=== PATIENT | male | born 1935 | race Hispanic/Latino ===

== ENCOUNTER 2019-01-07 08:19 | Observation (INO) | payer OTHER ==
[2019-01-06 16:09] LABS: APPEARANCE,URINE Clear (CLEAR); BILIRUBIN,URINE Negative (NEGATIVE); COLOR,URINE Yellow (YELLOW); GLUCOSE, URINE (UA) Negative (NEGATIVE); KETONES,URINE Negative (NEGATIVE); LEUKOCYTE ESTERASE ,URINE Trace (NEGATIVE); NITRATE,URINE Negative (NEGATIVE); OCCULT BLOOD,URINE Negative (NEGATIVE); PROTEIN,URINE Negative (NEGATIVE); UROBILINOGEN,URINE 0.2 mg/dL (0.2-1.0)
[2019-01-06 16:13] VITALS: BP 149/73
[2019-01-06 16:17] LABS: CREATININE 1.6 mg/dL (0.5-1.5); POTASSIUM 5.5 mmol/L (3.5-5.1)
[2019-01-06 16:22] LABS: INR 0.97 (0.85-1.15); PROTHROMBIN TIME 10.2 SEC (9.6-11.6)
[2019-01-06 16:49] LABS: BACTERIA,URINE Few /HPF (None Seen); RBC,URINE 0-1 /HPF (0-1); SQUAMOUS EPITHELIAL CELL,UR Few /HPF (0-2)
--- NOTE | 2019-01-06 18:10 | NUR ---
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
--- NOTE | 2019-01-06 18:16 | NUR ---
called lab and spoke to narcisa, advisedof new urine cx order.
[2019-01-07] VITALS (19 sets, daily range): BP systolic 105–133; BP diastolic 54–67
[~2019-01-07] VITALS: Ht 175.3 cm; Wt 108.9 kg
[~2019-01-07 08:19] MED LIST: AMLO10TA7 PO; DORZ1DRO7 OU; LATA7.5D OU; LISI1TAB28 PO; METF-444 PO; OMEP-50 PO; SIMV-46 PO
[2019-01-07] MEDS ORDERED: LEVOFLOXACIN 500 MG/D5W 100 ML 100 ML IV SCH (08:30)
[2019-01-07] MEDS ORDERED: SODIUM CHLORIDE 0.9% 1000ML 1,000 ML IV ONE (09:43)
[2019-01-07] MEDS: CEFAZOLIN SODIUM 1 GM VIAL IVP SCH ×3 (10:00→20:49)
[2019-01-07] MEDS ORDERED: ACETAMINOPHEN EXTRA STRENGTH 500 MG TABLET ONE (10:24)
[2019-01-07] MEDS ORDERED: CELECOXIB 200 MG CAP ONE (10:24)
--- NOTE | 2019-01-07 10:34 | NUR ---
POTENTIAL FOR INFECTION: SHAVED RIGHT KNEE / LEG PER ROSEANNE FERNANDEZ, FOLLOWED BY WIPING WITH MAZIN: 2% CHLORHEXIDINE GLUCONATE CLOTH PATIENTS PRE-OP SKIN PREP.
[2019-01-07] MEDS ORDERED: CEFAZOLIN SODIUM 1 GM VIAL ONE (10:58)
[2019-01-07] MEDS ORDERED: TRANEXAMIC ACID 1000MG/10ML ONE ×2 (10:58)
[2019-01-07] MEDS ORDERED: LIDOCAINE PF 2% 5ML ABBOJECT ONE (11:58)
[2019-01-07] MEDS ORDERED: FENTANYL CITRATE PF 50 MCG/1 ML 5ML AMP IV ONE ×2 (11:59→13:13)
[2019-01-07] MEDS ORDERED: ROCURONIUM 10MG/1ML SYR 10 MG/ML ML ONE ×2 (11:59→13:27)
[2019-01-07] MEDS ORDERED: PROPOFOL 10 MG/ML 20ML VIAL IV ONE (11:59)
[2019-01-07] MEDS ORDERED: ROPIVACAINE 0.5% 5MG/ML 30ML IJ ONE (12:05)
[2019-01-07] MEDS ORDERED: EPHEDRINE SULFATE 50 MG/ML AMPULE ONE ×2 (12:20→14:00)
[2019-01-07] MEDS ORDERED: GLYCOPYRROLATE 1 MG/5 ML SYRINGE ONE (13:13)
[2019-01-07] MEDS ORDERED: NEOSTIGMINE 5MG/5ML SYR IV ONE (13:13)
[2019-01-07] MEDS ORDERED: ONDANSETRON HCL 4 MG/2 ML VIAL ONE (13:14)
[2019-01-07] MEDS ORDERED: DEXAMETHASONE SOD PHOSPHATE 10MG/ML 1ML VIAL ONE (13:14)
[2019-01-07] MEDS ORDERED: DiphenhydrAMINE HCL 50 MG/ML VIAL IVP PRN (14:30)
[2019-01-07] MEDS ORDERED: ONDANSETRON HCL 4 MG/2 ML VIAL IVP PRN (14:30)
[2019-01-07] MEDS ORDERED: POTASSIUM CHLORIDE 10% ELIXIR 20 MEQ/15 ML UDCUP PO PRN (14:30)
[2019-01-07] MEDS ORDERED: TEMAZEPAM 15 MG CAPSULE PO PRN (14:30)
[2019-01-07] MEDS ORDERED: OXYCODONE HCL 5 MG TAB PO PRN (14:30)
[2019-01-07] MEDS ORDERED: POTASSIUM CHLORIDE 20MEQ/100ML 100 ML IV PRN (14:30)
[2019-01-07] MEDS: SODIUM CHLORIDE 0.9% 1000ML 1,000 ML IV SCH ×3 (14:30→19:20)
[2019-01-07] MEDS ORDERED: CALCIUM CARBONATE 500 MG TABLET PO PRN (14:30)
[2019-01-07] MEDS ORDERED: POTASSIUM CHLORIDE 20 MEQ ERTAB PO PRN (14:30)
[2019-01-07] MEDS ORDERED: FERROUS FUMARATE 324 MG TABLET PO PRN (14:30)
[2019-01-07] MEDS ORDERED: TRAMADOL HCL 50 MG TABLET PO PRN (14:30)
[2019-01-07] MEDS ORDERED: LIDOCAINE HCL-MPF 1% 2ML VIAL IV PRN (14:30)
[2019-01-07] MEDS: ACETAMINOPHEN EXTRA STRENGTH 500 MG TABLET PO SCH ×2 (14:30→20:50)
--- NOTE | 2019-01-07 15:25 | NUR ---
TRANEXAMIC ACID 1GM IVPB GIVEN IN PACU. Addendum: 01/07/19 at 1526 by RACHEL MOORE RN RN Amended: Links added.
[2019-01-07] MEDS: INSULIN HUMULIN R 100 UNIT/ML 3ML SQ SCH ×2 (16:30→20:51)
--- NOTE | 2019-01-07 17:03 | NUR ---
DCP CM met with pt discussed dc plans. Pt is independent prior to surgery, lives at home with spouse. Pt has a shower chair. Denies any other equipments/services. Feels safe to go back home, spouse able to assist with transportation and needs as necessary. Pt agreeable for short term rehab, spouse sign [facility] for [facility]. Faxed order, clinicals, PAS[facility], confirmation received. DC plan to SNF. CM to cont to follow up. Addendum: 01/07/19 at 1707 by MELE DOWLING LVN CM Amended: Links added.
[2019-01-07] MEDS: METFORMIN HCL 500 MG TAB.SR.24H PO SCH (20:49)
[2019-01-07] MEDS: SIMVASTATIN 20 MG TABLET PO SCH (20:49)
[2019-01-07] MEDS: PREGABALIN 25 MG CAP PO SCH (20:49)
[2019-01-07] MEDS: ASPIRIN 81MG TAB.CHEW PO SCH (20:49)
[2019-01-07] MEDS: CELECOXIB 200 MG CAP PO SCH (20:50)
[2019-01-07] MEDS: TIMOLOL OU SCH (20:59)
[2019-01-07] MEDS: HYDROCHLOROTHIAZIDE PO SCH (20:59)
[2019-01-07] MEDS: DORZOLAMIDE OU SCH (20:59)
[2019-01-07] MEDS: LATANOPROST 2.5 ML DROPS OU SCH (20:59)
[2019-01-07] MEDS: LISINOPRIL PO SCH (20:59)
[2019-01-08] MEDS: CEFAZOLIN SODIUM 1 GM VIAL IVP SCH (03:02)
[2019-01-08] MEDS: SODIUM CHLORIDE 0.9% 1000ML 1,000 ML IV SCH (03:03)
[2019-01-08 04:22] VITALS: BP 124/64
[2019-01-08 04:27] LABS: HEMATOCRIT 35.3 % (42-54); MEAN CORPUSCULAR HEMOGLOBIN 29.6 pg (27.0-33.0); MEAN CORPUSCULAR HGB CONC 34.2 g/dL (32.0-36.0); MEAN CORPUSCULAR VOLUME 86.6 fL (79-99); PLATELET COUNT (AUTO) 230 K/uL (130-400); RED BLOOD CELL COUNT(AUTO) 4.07 MIL/uL (4.50-6.20); WHITE BLOOD COUNT (AUTO) 12.3 K/uL (4.8-10.8)
[2019-01-08 04:42] LABS: CREATININE 1.6 mg/dL (0.5-1.5); POTASSIUM 4.8 mmol/L (3.5-5.1)
[2019-01-08] MEDS: INSULIN HUMULIN R 100 UNIT/ML 3ML SQ SCH ×3 (05:17→16:30)
[2019-01-08] MEDS: ACETAMINOPHEN EXTRA STRENGTH 500 MG TABLET PO SCH ×2 (06:47→14:53)
[2019-01-08] MEDS ORDERED: PANTOPRAZOLE SODIUM 40 MG TABLET.DR PO SCH (07:30)
[2019-01-08 07:43] VITALS: BP 120/65
[2019-01-08] MEDS: TIMOLOL OU SCH ×2 (08:12→19:37)
[2019-01-08] MEDS: DORZOLAMIDE OU SCH ×2 (08:12→19:37)
[2019-01-08] MEDS: CELECOXIB 200 MG CAP PO SCH ×2 (08:12→19:36)
[2019-01-08] MEDS: LISINOPRIL PO SCH ×2 (08:13→19:37)
[2019-01-08] MEDS: ASPIRIN 81MG TAB.CHEW PO SCH ×2 (08:13→19:36)
[2019-01-08] MEDS: PREGABALIN 25 MG CAP PO SCH ×2 (08:13→19:36)
[2019-01-08] MEDS: HYDROCHLOROTHIAZIDE PO SCH ×2 (08:13→19:37)
[2019-01-08] MEDS ORDERED: TAMSULOSIN HCL 0.4 MG CAP.ER.24H PO SCH (09:00)
[2019-01-08] MEDS ORDERED: AMLODIPINE BESYLATE 5 MG TAB PO SCH (09:00)
[2019-01-08] MEDS ORDERED: FAMOTIDINE 20MG TAB 20 MG TAB PO SCH (09:00)
[2019-01-08] MEDS ORDERED: POLYETHYLENE GLYCOL 3350 17 GM POWD.PACK PO SCH (09:00)
[2019-01-08] MEDS: OXYCODONE HCL 5 MG TAB PO PRN ×2 (09:01→19:37)
[2019-01-08 11:27] VITALS: BP 109/59
--- NOTE | 2019-01-08 14:37 | NUR ---
CM Note: [employer] ins auth CM spoke to Nani lewis/gloria, pt has ins auth. Pt safe to transfer via [facility] transport van. Primary nurse aware. CM to cont to follow up.
--- NOTE | 2019-01-08 14:38 | NUR ---
1212 Had patient's sign SAPP Letter.Faxed to [phone] and placed in chart under consent tab.
[2019-01-08 16:30] VITALS: BP 110/59
[2019-01-08] MEDS ORDERED: ASPI-1005 PO (19:08)
[2019-01-08] MEDS ORDERED: HYDR-4457 PO (19:08)
[2019-01-08] MEDS ORDERED: SULF1TAB42 PO (19:12)
--- NOTE | 2019-01-08 19:30 | NUR ---
DISCHARGE PATIENT GIVEN DISCHARGE INSTRUCTIONS AND EDUCATION, INCLUDING SIDE EFFECTS ON NEW PRESCRIBED MEDICATIONS AND FOLLOW UP APPOINTMENT. PATIENT AND SPOUSE VERBALIZED UNDERSTANDING OF ALL EDUCATION GIVEN AT THIS TIME. IV DISCONTINUED, CATHETER INTACT. DANIEL DRESSING CHANGED PER MD ORDERS. MEGHANA BORGES AT [facility] AWARE OF DISCHARGE. PENDING TRANSPORT FOR TRANSFER TO FACILITY. Addendum: 01/08/19 at 2242 by ZITA LEROY RN RN Amended: Links added.
[2019-01-08 19:34] VITALS: BP 130/77
[2019-01-08] MEDS: METFORMIN HCL 500 MG TAB.SR.24H PO SCH (19:36)
[2019-01-08] MEDS: SIMVASTATIN 20 MG TABLET PO SCH (19:37)
[2019-01-08] MEDS: LATANOPROST 2.5 ML DROPS OU SCH (20:43)
--- NOTE | 2019-01-08 21:00 | NUR ---
[facility] HERE TO TRANSFER PATIENT. PATIENT LEFT. NO SIGNS OF DISTRESS NOTED. ALL BELONGINGS TAKEN WITH. SPOUSE AT SIDE. PATIENT IN GOOD SPIRITS. Addendum: 01/08/19 at 2243 by ZITA LEROY RN RN Amended: Links added.
[2019-01-10] MEDS ORDERED: BISACODYL 10 MG SUPP.RECT RC PRN (14:30)
== END 2019-01-08 21:02 ==
LOC: DAH 08:19 → DAHIP 08:20 → 4AH 14:52
PROVIDERS: ADMIT Orthopaedic Surgery; ATTEND Orthopaedic Surgery
DX: M17.11 Unilateral primary osteoarthritis, right knee (principal); I10 Essential (primary) hypertension; E11.9 Type 2 diabetes mellitus without complications; E78.00 Pure hypercholesterolemia, unspecified; Z87.891 Personal history of nicotine dependence; Z79.84 Long term (current) use of oral hypoglycemic drugs; Z79.899 Other long term (current) drug therapy
CPT/HCPCS: 27447; 36415 ×2; 80048 ×2; 81001; 82948 ×5; 85027; 85610; 87077; 87088; 87186; 87641; 88304; 88311; 96365; 96375 ×2; 96376; 97039; 97116 ×2; 97161; 97530 ×2; A4215; A4221; A4222; A4223 ×2; A4649 ×4; A4663; A4930 ×3; A5120; A9272; C1763; C1776; G0378 ×29; G8978; G8979; G8980; G8981; G8982; G8983; J0690 ×4; J1100; J1956; J2001; J2405 ×2; J2704; J2710; J2795; J3010 ×2; J3490 ×5; J7030; J7120